=== PATIENT | female | born 1940 | race African-American/Black ===

== ENCOUNTER → 2017-12-27 | Outpatient (CLI) | payer OTHER ==
[2015-03-20 11:43] VITALS: BP 152/73
--- NOTE | 2017-12-27 15:17 | RAD ---
HISTORY: Neck pain. Study: Three views of the cervical spine. Comparison: None. Findings: Slight reversal of the normal cervical lordosis, which may represent positioning versus muscle spasm. Multilevel moderate to severe degenerative changes of the cervical spine. No acute fracture or listh esis. The dens is intact. The prevertebral soft tissues and lung apices appear normal. IMPRESSION: Chronic findings as above. Reported By:
== END ==
LOC: RAD 14:12
PROVIDERS: ATTEND Nurse Practitioner Family
DX: M54.2 Cervicalgia (principal)
CPT/HCPCS: 72040

== ENCOUNTER → 2018-01-05 | Outpatient (CLI) | payer OTHER ==
[2015-03-20 11:43] VITALS: BP 152/73
--- NOTE | 2018-01-06 09:30 | MRI ---
HISTORY: Neck pain and cervical radiculopathy. Noncontrast MRI examination of the cervical spine. Technique: Sagittal T1, sagittal T2, axial T2 weighted images were obtained. Findings: There is diffuse straightening of the normal cervical lordosis on this examination. There i s a moderate to severe spondylosis and facet DJD seen from C3-C7 with multilevel disc osteophyte comp lexes and diffuse cervical disc desiccation. There is no evidence for an acute fracture or subluxatio n. No aggressive bone marrow lesion is seen. There is no evidence for cerebral tonsillar ectopia. The posterior elements appear diffusely intact. There is no evidence for cord expansion, cord edema, or abnormal cord signal. No intrathecal mass lesions or intrathecal hemorrhage is seen. There is no cerv ical soft tissue mass lesions are appreciated. C2 -- C3: No significant disc pathology or foraminal/spinal canal stenosis. C3 -- C4: Facet joint DJD which creates moderate bilateral foraminal narrowing at this level. C4 -- C5: Broad-based, posterior, disc osteophyte complex which combines with facet DJD to create mil d to moderate spinal canal stenosis and moderate to severe foraminal narrowing. C5 -- C6: Broad-based, posterior, disc osteophyte complex which combines with facet DJD to create mod erate spinal canal stenosis and moderate to severe bilateral foraminal narrowing. C6 -- C7: Broad-based, posterior, disc osteophyte complex which combines with facet DJD to create mod erate spinal canal stenosis and moderate to severe bilateral foraminal narrowing. C7 -- T1: No significant disc pathology or foraminal/spinal canal stenosis. IMPRESSION: Straightening/reversal of the normal cervical lordosis observed. Advanced cervical spondylotic change with C3-C7 central disc osteophyte complexes and facet DJD which creates moderate severe foraminal and spinal canal stenosis at these levels, as detailed above. No e vidence for cervical cord myelomalacia, however. Reported By:
== END ==
LOC: RAD 13:50
PROVIDERS: ATTEND Nurse Practitioner Family
DX: R93.7 Abnormal findings on diagnostic imaging of other parts of musculoskeletal system (principal); M50.30 Other cervical disc degeneration, unspecified cervical region; M54.2 Cervicalgia
CPT/HCPCS: 72141

== ENCOUNTER 2020-11-26 16:25 | Inpatient (IN) ==
[2020-11-26 17:21] LABS: ABG BASE EXCESS 9.2 mmol/L (-2.0-2.0)
[2020-11-26 17:22] LABS: ABG ALLEN TEST POS; ABG HCO3 32.6 mmol/L (22-26)
[2020-11-26] MEDS ORDERED: TUSSIONEX PENNKINETIC SUSP PO PRN (17:23)
[2020-11-26] MEDS ORDERED: LEVAQUIN PREMIX IV 500 MG 500 MG/100 ML BAG IV SCH (17:23)
[2020-11-26] MEDS: NS 1/2 1000 ML IV 1,000 ML IV SCH (17:37)
[2020-11-26] MEDS: ROBITUSSIN DM PO SCH ×2 (17:39→22:03)
[2020-11-26] MEDS: VSL#3 PO SCH (17:39)
[2020-11-26] MEDS: PULMICORT NEB TX 0.5 MG NEB SCH ×2 (18:12→21:15)
[2020-11-26] MEDS: DUONEB 0.5 MG/3 MG (3 mL) NEB SCH ×2 (18:12→21:15)
[2020-11-26 18:15] VITALS: BMI 32.5
[2020-11-26 18:29] LABS: BASOPHILS % (AUTO) 0.2 % (0.2-1.0); EOSINOPHILS % (AUTO) 0.1 % (0.9-2.9); HEMATOCRIT 38.8 % (36.0-47.0); HEMOGLOBIN 12.6 g/dL (12.0-16.0); LYMPHOCYTES # (AUTO) 0.8 X10^3/uL (1.3-2.9); LYMPHOCYTES % (AUTO) 10.3 % (21.0-51.0); MEAN CORPUSCULAR HEMOGLOBIN 28.7 pg (27.0-34.0); MEAN CORPUSCULAR HGB CONC 32.6 g/dL (33.0-35.0); MEAN CORPUSCULAR VOLUME 87.9 fL (80.0-100.0); MEAN PLATELET VOLUME 8.3 fL (7.4-11.0); MONOCYTES # (AUTO) 0.6 x10^3/uL (0.3-0.8); MONOCYTES % (AUTO) 7.5 % (0.0-13.0); NEUTROPHILS # (AUTO) 6.5 x10^3/uL (2.2-4.8); NEUTROPHILS % (AUTO) 81.9 % (42.0-75.0); PLATELET COUNT 112 X10^3/uL (150.0-450.0); RED BLOOD COUNT 4.41 X10^6/uL (3.5-5.4); RED CELL DISTRIBUTION WIDTH 13.6 % (11.6-16.5)
[2020-11-26 18:38] LABS: ALBUMIN 2.8 g/dL (3.4-5.0); CALCIUM 9.2 mg/dL (8.5-10.1); CARBON DIOXIDE 30.7 mmol/L (21-32); COR CA(FOR HYPOALB) 10.2 mg/dL (8.5-10.1); CREATININE 1.22 mg/dL (0.55-1.02); TOTAL PROTEIN 7.3 g/dL (6.4-8.2)
[2020-11-26] MEDS ORDERED: REMDESIVIR 200 MG in NS 250 ML IV 250 ML IV SCH (19:33)
[2020-11-26] MEDS ORDERED: REMDESIVIR IV ONE (19:44)
[2020-11-26] MEDS ORDERED: NS 250 ML IV 250 ML IV ONE (19:45)
[2020-11-26] MEDS: MUCOMYST 20% 200 MG/ML NEB SCH (21:15)
[2020-11-26] MEDS: PROTONIX TAB 40 MG PO SCH (22:02)
[2020-11-26] MEDS: TESSALON PERLES PO SCH (22:02)
[2020-11-26] MEDS: LOVENOX INJ 40 MG SYR SC SCH (22:02)
[2020-11-26] MEDS: ZINC SULFATE PO SCH (22:03)
[2020-11-26] MEDS: SOLU-Medrol 40 MG VIAL IVP SCH (22:04)
[2020-11-26] MEDS: ASCORBIC ACID INJ MULTI-DOSE VIAL 1,500 MG in NS 100 ML IV 100 ML IV SCH ×2 (22:05)
[2020-11-26] MEDS ORDERED: SOLU-Medrol 125 MG VIAL ONE (22:06)
[2020-11-26] MEDS ORDERED: ZINC SULFATE ONE (22:07)
[2020-11-26] MEDS ORDERED: TESSALON PERLES PO ONE (22:07)
[2020-11-27] MEDS ORDERED: NS 100 ML IV 100 ML IV ONE ×4 (02:52→14:27)
[2020-11-27] MEDS ORDERED: ASCORBIC ACID INJ MULTI-DOSE VIAL IV ONE ×3 (02:52→14:27)
[2020-11-27] MEDS: ASCORBIC ACID INJ MULTI-DOSE VIAL 1,500 MG in NS 100 ML IV 100 ML IV SCH ×4 (03:36→22:08)
[2020-11-27] MEDS ORDERED: SOLU-Medrol 125 MG VIAL ONE (04:55)
[2020-11-27] MEDS ORDERED: TESSALON PERLES PO ONE ×2 (04:55→14:26)
[2020-11-27] MEDS: SOLU-Medrol 40 MG VIAL IVP SCH ×3 (05:34→22:08)
[2020-11-27] MEDS: TESSALON PERLES PO SCH ×3 (05:34→22:08)
--- NOTE | 2020-11-27 06:10 | RAD ---
HISTORYPNEUMONIASTUDYCHEST, 1 VIEWCOMPARISONNoneFINDINGSThe trachea is midline. The cardiac silhouette is mildly enlarged.. There are patchy infiltrates within the mid and lower lung everett bilaterally. No pneumothorax.. The bony thorax is unremarkable.IMPRESSIONMild cardiomegaly.Bilateral patchy mid and lower lung field infiltrates.Electronically signed by: Jacinto Zamora (Nov 27, 2020 06:08:45)
[2020-11-27 06:14] LABS: ABG BASE EXCESS 6.2 mmol/L (-2.0-2.0); ABG HCO3 29.5 mmol/L (22-26)
[2020-11-27 06:15] LABS: ABG ALLEN TEST POS
[2020-11-27 06:19] LABS: BASOPHILS % (AUTO) 0.2 % (0.2-1.0); HEMATOCRIT 38.7 % (36.0-47.0); HEMOGLOBIN 12.7 g/dL (12.0-16.0); LYMPHOCYTES # (AUTO) 0.7 X10^3/uL (1.3-2.9); LYMPHOCYTES % (AUTO) 7.9 % (21.0-51.0); MEAN CORPUSCULAR HEMOGLOBIN 28.7 pg (27.0-34.0); MEAN CORPUSCULAR HGB CONC 32.8 g/dL (33.0-35.0); MEAN CORPUSCULAR VOLUME 87.6 fL (80.0-100.0); MEAN PLATELET VOLUME 8.7 fL (7.4-11.0); MONOCYTES # (AUTO) 0.7 x10^3/uL (0.3-0.8); MONOCYTES % (AUTO) 7.4 % (0.0-13.0); NEUTROPHILS % (AUTO) 84.5 % (42.0-75.0); PLATELET COUNT 113 X10^3/uL (150.0-450.0); RED BLOOD COUNT 4.42 X10^6/uL (3.5-5.4); RED CELL DISTRIBUTION WIDTH 13.7 % (11.6-16.5); WHITE BLOOD COUNT 9.5 X10^3/uL (3.6-10.0)
--- NOTE | 2020-11-27 06:25 | RAD ---
HISTORYCOVID PNEUMONIASTUDYCHEST, 1 [id number]/29/2020FINDINGSThe trachea is midline. The cardiac silhouette is enlarged.. Patchy infiltrates within the mid and lower lung everett bilaterally minimally increased. No pneumothorax.. The bony thorax is unremarkable.IMPRESSIONMild cardiomegalyBilateral patchy mid and lower lung field infiltrates, slightly increased from previous 11/26/2020Electronically signed by: Jacinto Zamora (Nov 27, 2020 06:23:47)
[2020-11-27 06:35] LABS: ALANINE AMINOTRANSFERASE 34 Units/L (12-78); ALBUMIN 2.5 g/dL (3.4-5.0); ALKALINE PHOSPHATASE 55 Units/L (46-116); ASPARTATE AMINO TRANSFERASE 55 Units/L (15-37); BLOOD UREA NITROGEN 9 mg/dL (7-18); CALCIUM 9.1 mg/dL (8.5-10.1); CARBON DIOXIDE 26.4 mmol/L (21-32); CHLORIDE 102 mmol/L (98-107); COR CA(FOR HYPOALB) 10.3 mg/dL (8.5-10.1); COR NA(FOR HYPERGLY) 138 mmol/L (136-145); CREATININE 1.05 mg/dL (0.55-1.02); SODIUM 138 mmol/L (136-145); eGFR NON BLACK RACES 54 (>60)
[2020-11-27] MEDS ORDERED: PROTONIX TAB 40 MG PO ONE (08:22)
[2020-11-27] MEDS ORDERED: LOVENOX INJ 40 MG SYR SC ONE (08:22)
[2020-11-27] MEDS ORDERED: ZINC SULFATE ONE (08:23)
[2020-11-27] MEDS ORDERED: ROBITUSSIN DM ONE ×4 (08:23→20:22)
[2020-11-27] MEDS: PROTONIX TAB 40 MG PO SCH (08:29)
[2020-11-27] MEDS: LOVENOX INJ 40 MG SYR SC SCH ×2 (08:29→22:09)
[2020-11-27] MEDS: ZINC SULFATE PO SCH ×3 (08:30→23:00)
[2020-11-27] MEDS: ROBITUSSIN DM PO SCH ×4 (08:30→22:09)
[2020-11-27] MEDS: VSL#3 PO SCH (08:57)
[2020-11-27] MEDS ORDERED: DUONEB 0.5 MG/3 MG (3 mL) NEB ONE ×2 (09:37→17:11)
--- NOTE | 2020-11-27 09:40 | CT ---
HISTORYCOVID, shortness of breath, chest painSTUDYCTA chest with contrast for pulmonary embolusTechnique: Axial post-contrast images with coronal, sagittal, and 3 dimensional maximum intensity projection images obtained and evaluated. Dose reduction procedures were used with mA/kv adjusted for body size.COMPARISONNoneFINDINGSThere is no evidence for acute pulmonary thromboembolic disease. Examination of the mediastinum demonstrated no evidence for mediastinal masses, enlarged mediastinal or enlarged hilar adenopathy or significant aortic abnormality. The heart is enlarged. No pleural effusions are identified. No chest wall or axillary abnormality is identified. There is a small hiatal hernia present. Those portions of the upper abdominal organs visualized were within limits. Examination of the lung everett demonstrated diffuse bilateral predominantly peripheral ground-glass infiltrates demonstrating subpleural sparing findings are most consistent with multifocal pneumonia which could be bacterial, viral or atypical viral in origin. COVID lung involvement can have this appearance. No definite nodules, masses, peribronchial thickening or bronchiectasis identified.IMPRESSIONNo evidence for acute pulmonary thromboembolic diseaseFindings consistent with multifocal pneumonia as described above which could be bacterial, viral, or atypical viral in origin. Findings are consistent with but not necessarily diagnostic of COVID-19 lung involvement.Electronically signed by: HOLDEN SPARROW (Nov 27, 2020 09:39:30)
[2020-11-27] MEDS: MUCOMYST 20% 200 MG/ML NEB SCH ×2 (09:52→21:19)
[2020-11-27] MEDS: PULMICORT NEB TX 0.5 MG NEB SCH ×2 (09:52→21:19)
[2020-11-27] MEDS: DUONEB 0.5 MG/3 MG (3 mL) NEB SCH ×5 (09:52→21:19)
[2020-11-27] MEDS: NS 1/2 1000 ML IV 1,000 ML IV SCH ×3 (14:22→22:57)
[2020-11-27] MEDS ORDERED: SOLU-Medrol 40 MG VIAL ONE (14:26)
[2020-11-27] MEDS ORDERED: NS 1/2 1000 ML IV 1,000 ML IV ONE (14:36)
--- NOTE | 2020-11-27 20:06 | DR.H&P ---
H&P - History & Physical for Day of: H&P Date: 11/26/20 - Chief Complaint Chief Complaint: COUGH, SOB, FEVER, WEAKNESS, LOW OXYGEN SATURATIONS, COVID POSITIVE - History of Present Illness History of Present Illness: IS A 79 YEAR OLD PATIENT OF PAT [facility]. CONSULTED US FOR DIRECT ADMISSION OF PATIENT DUE TO HYPOXIA AND PNEUMONIA DUE TO COVID-19. PATIENT WAS REPORTEDLY TESTED FOR COVID-19 ON 11/24/20 AND RECEIVED A POSITIVE RESULT TODAY. SHE PRESENTED WITH COMPLAINTS OF SHORTNESS OF BREATH, NON-PRODUCTIVE COUGH, FEVER OF 103, LOW OXYGEN SATURATIONS, AND GENERALIZED WEAKNESS. HER OXYGEN SATURATIONS IN THE OFFICE WERE REPORTEDLY 88-90% ON ROOM AIR. HER PMH INCLUDES: HTN, HYPERLIPIDEMIA, GERD, HYPOTHYROIDISM, AND CHOLECYSTECTOMY. ON ARRIVAL TO THE ER, VITALS WERE 98.8-92-20-90%NC-185/88. LABS WERE OBTAINED. ABNORMAL LAB VALUES INCLUDE THE FOLLOWING: PLT COUNT 112, POTASSIUM 3.4, CREATININE 1.22, GLUCOSE 112, CORRECTED CALCIUM 10.2, FERRITIN 1466, AST 52, CRP 173.20, ALBUMIN 2.8, D-DIMER 2.04. COVID-19 POSITIVE. AN ABG WAS OBTAINED AND REVEALED: PH 7.530, PC02 39, P02 52, HC03 32.6, 02 SAT 90, BASE EXCESS 9.2, FI02 21.0. BLOOD CULTURES ARE PENDING. A CHEST XRAY WAS OBTAINED AND REVEALED: Mild cardiomegaly. Bilateral patchy mid and lower lung field infiltrates. WE OBTAINED A CHEST CTA. IT REVEALED: No evidence for acute pulmonary thromboembolic disease. Findings consistent with multifocal pneumonia as described above which could be bacterial, viral, or atypical viral in origin. Findings are consistent with but not necessarily diagnostic of COVID-19 lung involvement. SHE WAS PLACED ON A NASAL CANNUAL WITH OXYGEN AT 3 LPM AND HER OXYGEN SATURATIONS INCREASED TO THE MID 90s. IN THE ER, SHE WAS GIVEN LEVAQUIN 500MG IV X 1, REMDESIVIR 200MG IV X 1, ASCORBID ACID 1500MG IV X 1. SHE WAS ADMITTED TO THE HOSPTIAL FOR FURHTER EVALUATION AND TREATMENT OF PNEUONIA DUE TO COVID-19 AND HYPOXIA. SHE WAS STARTED ON 1/2NS AT 75 ML/HR, LEVAQUIN 500MG IV DAILY, DUONEBS QID, PULMICORT NEBS BID, MUCOMYST IN NEBS BID, TUSSIONEX 5ML PO Q12H PRN, ROBITUSSIN DM 10 ML PO QID, TESSALON PERLES 200MG PO TID, LOVENOX 40MG SC BID, ASCORBID ACID 1500MG IV Q6H, PROTONIX 40G PO DAILY, SOLU-MEDROL 80MG IV Q8H, AND ZINC SULFATE 220MG PO BID. WE WILL OBTAIN AN ECHO. OTHERWISE, WE WILL FOLLOW UP WITH AM LABS, CHEST XRAY, ABG, AND CONTINUE TO MONITOR. CRITICAL CARE TIME SPENT ON CLINICAL ASSESSMENT, PHYSICAL EXAMINATION, REVIEWING LABS/IMAGING, AND DECISION MAKING GREATER THAN 75 MINUTES. - Past Medical History Past Medical History: Dyslipidemia, GERD, Hypertension, Hypothyroidism - Past Surgical History Surgical History: Cholecystectomy - Family History Family Medical History: Cancer - Social History Does patient currently use any type of tobacco product: No Have you used tobacco products in the last 12 months: No Type of Tobacco Use: None Does any household member use tobacco: No Alcohol Use: None Drug Use: None - Medications Home Medications: penicillin G Allergy (Verified 11/27/20 03:36) CONTINUE taking the following medications allopurinol 300 mg PO DAILY 11/27/20 [History] frnegmsbel-zedsvvstzegje-atgz [Fioricet] 1 tab PO BID PRN 11/27/20 [History] celecoxib 200 mg PO DAILY 11/27/20 [History] chlordiazepoxide-methscopolamn [Librax (with methscopolamine)] 1 cap PO BID PRN 11/27/20 [History] clonazepam 0.5 mg PO DAILY PRN 11/27/20 [History] cyclobenzaprine 10 mg PO BID PRN 11/27/20 [History] diclofenac sodium 100 mg PO DAILY 11/27/20 [History] duloxetine 60 mg PO DAILY 11/27/20 [History] fenofibrate 160 mg PO HS 11/27/20 [History] ferrous sulfate 325 mg PO BID 11/27/20 [History] fluticasone propionate [Flonase Allergy Relief] 1 spray INTRANASAL DAILY 11/27/20 [History] furosemide [Lasix] 20 mg PO DAILY PRN 11/27/20 [History] hydroxyzine HCl 25 mg PO TID PRN 11/27/20 [History] losartan 100 mg PO DAILY 11/27/20 [History] meclizine 12.5 mg PO PRN PRN 11/27/20 [History] methocarbamol [Robaxin] 500 mg PO BID 11/27/20 [History] cz-dx-kxbg-FA-herbal cmplx#[id number] [Vitamin D3 Complete] 1.25 tab PO DAILY 11/27/20 [History] oxycodone-acetaminophen 1 tab PO BID PRN 11/27/20 [History] pantoprazole 40 mg PO DAILY 11/27/20 [History] potassium chloride [Klor-Con M10] 10 meq PO QID 11/27/20 [History] pregabalin 75 mg PO BID 11/27/20 [History] ropinirole 1 mg PO TID PRN 11/27/20 [History] simvastatin [Zocor] 10 mg PO HS 11/27/20 [History] sulindac 200 mg PO BID 11/27/20 [History] tamsulosin 0.4 mg PO HS 11/27/20 [History] tramadol [Ultram] 50 mg PO TID-QID PRN 11/27/20 [History] zolpidem 10 mg PO HS 11/27/20 [History] - Review of Systems Constitutional: Fever, Chills Eyes: No Symptoms Reported ENT: No Symptoms Reported Respiratory: See HPI, Cough, Shortness of Breath, SOB with Excertion, Wheezing Cardiovascular: No Symptoms Reported Gastrointestinal: No Symptoms Reported Genitourinary: No Symptoms Reported Musculoskeletal: No Symptoms Reported Skin: No Symptoms Reported Neurological: Weakness - Physical Exam Vital Signs: Temperature 98.8 F Pulse Rate [Left Brachial] 92 Pulse Rate 93 Respiratory Rate 22 Blood Pressure [Left Arm] 167/77 Blood Pressure 152/73 O2 Sat by Pulse Oximetry 91 Oriented: Normal Eyes: Normal Ear: Normal Nose: Normal Throat: Normal Respiratory: Wheezes Throughout Cardiovascular: Normal : Normal Auscultation: Bowel Sounds: Normal Palpation: Normal Tenderness: Normal Skin: Normal Musculoskeletal: Normal Psychiatric: Normal Mood Description: Calm Affect: Normal Speech Pattern: Clear - Assessment/Plan (1) Pneumonia due to COVID-19 virus Status: Acute Plan: ADMIT, REMDESIVIR 100MG IV DAILY, 1/2NS AT 75 ML/HR, LEVAQUIN 500MG IV DAILY, DUONEBS QID, PULMICORT NEBS BID, MUCOMYST IN NEBS BID, TUSSIONEX 5ML PO Q12H PRN, ROBITUSSIN DM 10 ML PO QID, TESSALON PERLES 200MG PO TID, LOVENOX 40MG SC BID, ASCORBID ACID 1500MG IV Q6H, PROTONIX 40G PO DAILY, SOLU-MEDROL 80MG IV Q8H, AND ZINC SULFATE 220MG PO BID. (2) Hypoxia Status: Acute - Allergies Allergies/Adverse Reactions: Allergies Allergy/AdvReac Type Severity Reaction Status Date / Time penicillin G Allergy Verified 11/27/20 03:36
[2020-11-27] MEDS ORDERED: NS 250 ML IV 250 ML IV ONE (20:22)
[2020-11-27] MEDS ORDERED: REMDESIVIR IV ONE (20:22)
[2020-11-27] MEDS: REMDESIVIR 100 MG in NS 250 ML IV 250 ML IV SCH (22:09)
[2020-11-27] MEDS: LEVAQUIN PREMIX IV 500 MG 500 MG/100 ML BAG IV SCH (22:57)
[2020-11-27] MEDS ORDERED: IVERMECTIN PO SCH (23:00)
[2020-11-27] MEDS ORDERED: THIAMINE HCL INJ ONE (23:16)
[2020-11-27] MEDS ORDERED: VIBRAMYCIN PO ONE (23:19)
[2020-11-27] MEDS ORDERED: LEVAQUIN PREMIX IV 500 MG 500 MG/100 ML BAG IV ONE (23:19)
[2020-11-27] MEDS: VITAMIN A PO SCH (23:27)
[2020-11-27] MEDS: LIPITOR TAB 40 MG PO SCH (23:34)
[2020-11-27] MEDS: PEPCID TAB 20 MG PO SCH (23:35)
[2020-11-28] MEDS: THIAMINE HCL INJ IVP SCH ×3 (00:01→21:12)
[2020-11-28] MEDS: VITAMIN D (1.25MG) PO SCH ×2 (00:01→09:23)
[2020-11-28] MEDS: VIBRAMYCIN PO SCH ×3 (00:01→21:14)
[2020-11-28] MEDS ORDERED: NS 100 ML IV 100 ML IV ONE (03:04)
[2020-11-28] MEDS: ASCORBIC ACID INJ MULTI-DOSE VIAL 1,500 MG in NS 100 ML IV 100 ML IV SCH (03:35)
[2020-11-28] MEDS ORDERED: TESSALON PERLES PO ONE (04:44)
[2020-11-28] MEDS: TESSALON PERLES PO SCH ×3 (05:01→21:13)
--- NOTE | 2020-11-28 06:47 | RAD ---
HISTORYShortness of breathSTUDYChest AP [id number]/30/2020 plain film and CTA chestFINDINGSThe heart is enlarged. No congestive heart failure is noted. The aorta is calcified. Bilateral interstitial, ground-glass, and alveolar infiltrates are again identified and are unchanged when compared to the prior examination. No pleural effusions are identified. Bony thorax is unremarkable.IMPRESSIONNo change bilateral infiltratesNo change cardiomegaly without congestive heart failureElectronically signed by: HOLDEN SPARROW (Nov 28, 2020 06:45:33)
[2020-11-28 06:53] LABS: BASOPHILS % (AUTO) 0.1 % (0.2-1.0); HEMATOCRIT 38.2 % (36.0-47.0); HEMOGLOBIN 12.6 g/dL (12.0-16.0); LYMPHOCYTES # (AUTO) 0.6 X10^3/uL (1.3-2.9); LYMPHOCYTES % (AUTO) 5.9 % (21.0-51.0); MEAN CORPUSCULAR HEMOGLOBIN 28.9 pg (27.0-34.0); MEAN CORPUSCULAR VOLUME 87.4 fL (80.0-100.0); MEAN PLATELET VOLUME 9.2 fL (7.4-11.0); MONOCYTES # (AUTO) 0.8 x10^3/uL (0.3-0.8); MONOCYTES % (AUTO) 7.5 % (0.0-13.0); NEUTROPHILS # (AUTO) 9.5 x10^3/uL (2.2-4.8); NEUTROPHILS % (AUTO) 86.5 % (42.0-75.0); PLATELET COUNT 145 X10^3/uL (150.0-450.0); RED BLOOD COUNT 4.37 X10^6/uL (3.5-5.4); RED CELL DISTRIBUTION WIDTH 13.6 % (11.6-16.5)
[2020-11-28 07:07] LABS: ALBUMIN 2.4 g/dL (3.4-5.0); CALCIUM 9.5 mg/dL (8.5-10.1); CARBON DIOXIDE 28.9 mmol/L (21-32); COR CA(FOR HYPOALB) 10.8 mg/dL (8.5-10.1); CREATININE 1.46 mg/dL (0.55-1.02); TOTAL PROTEIN 7.2 g/dL (6.4-8.2)
[2020-11-28] MEDS: DUONEB 0.5 MG/3 MG (3 mL) NEB SCH ×5 (09:16→21:00)
[2020-11-28] MEDS: MUCOMYST 20% 200 MG/ML NEB SCH ×2 (09:16→21:00)
[2020-11-28] MEDS: PULMICORT NEB TX 0.5 MG NEB SCH ×3 (09:16→21:00)
[2020-11-28] MEDS: DECADRON TAB PO SCH (09:20)
[2020-11-28] MEDS: LOVENOX INJ 40 MG SYR SC SCH ×2 (09:20→21:09)
[2020-11-28] MEDS: ASCORBIC ACID INJ MULTI-DOSE VIAL 1,500 MG in NS 50 ML IV 50 ML IV SCH ×3 (09:20→21:08)
[2020-11-28] MEDS: PEPCID TAB 20 MG PO SCH ×2 (09:21→21:09)
[2020-11-28] MEDS: PROTONIX TAB 40 MG PO SCH (09:21)
[2020-11-28] MEDS: ROBITUSSIN DM PO SCH ×4 (09:21→21:11)
[2020-11-28] MEDS: VITAMIN A PO SCH (09:22)
[2020-11-28] MEDS: VSL#3 PO SCH (09:23)
[2020-11-28] MEDS: ZINC SULFATE PO SCH ×2 (09:24→21:12)
[2020-11-28] MEDS: NS 1/2 1000 ML IV 1,000 ML IV SCH ×2 (09:24→12:33)
[2020-11-28] MEDS: TYLENOL 325 MG TAB PO PRN ×2 (13:00→21:16)
[2020-11-28] MEDS ORDERED: NS 1/2 1000 ML IV 1,000 ML IV ONE (19:49)
[2020-11-28] MEDS ORDERED: MUCOMYST (RESPIRATORY USE ONLY) ONE (20:01)
[2020-11-28] MEDS: LEVAQUIN PREMIX IV 500 MG 500 MG/100 ML BAG IV SCH (20:08)
[2020-11-28] MEDS: REMDESIVIR 100 MG in NS 250 ML IV 250 ML IV SCH (21:11)
[2020-11-28] MEDS: RESTORIL CAP 30 MG PO PRN (21:14)
[2020-11-29] MEDS: ASCORBIC ACID INJ MULTI-DOSE VIAL 1,500 MG in NS 50 ML IV 50 ML IV SCH ×4 (02:53→21:10)
[2020-11-29] MEDS: NS 1/2 1000 ML IV 1,000 ML IV SCH ×2 (02:53→15:00)
[2020-11-29] MEDS: TESSALON PERLES PO SCH ×3 (05:06→21:15)
[2020-11-29 06:56] LABS: BASOPHILS % (AUTO) 0.1 % (0.2-1.0); HEMATOCRIT 37.3 % (36.0-47.0); HEMOGLOBIN 12.3 g/dL (12.0-16.0); LYMPHOCYTES # (AUTO) 0.6 X10^3/uL (1.3-2.9); LYMPHOCYTES % (AUTO) 3.1 % (21.0-51.0); MEAN CORPUSCULAR HEMOGLOBIN 28.6 pg (27.0-34.0); MEAN CORPUSCULAR HGB CONC 32.9 g/dL (33.0-35.0); MEAN PLATELET VOLUME 8.2 fL (7.4-11.0); MONOCYTES # (AUTO) 1.4 x10^3/uL (0.3-0.8); MONOCYTES % (AUTO) 7.4 % (0.0-13.0); NEUTROPHILS # (AUTO) 16.5 x10^3/uL (2.2-4.8); NEUTROPHILS % (AUTO) 89.4 % (42.0-75.0); PLATELET COUNT 193 X10^3/uL (150.0-450.0); RED BLOOD COUNT 4.28 X10^6/uL (3.5-5.4); RED CELL DISTRIBUTION WIDTH 13.5 % (11.6-16.5); WHITE BLOOD COUNT 18.5 X10^3/uL (3.6-10.0)
[2020-11-29 06:57] LABS: ALBUMIN 2.4 g/dL (3.4-5.0); CALCIUM 9.1 mg/dL (8.5-10.1); CARBON DIOXIDE 28.7 mmol/L (21-32); COR CA(FOR HYPOALB) 10.4 mg/dL (8.5-10.1); CREATININE 1.37 mg/dL (0.55-1.02); TOTAL PROTEIN 6.9 g/dL (6.4-8.2)
--- NOTE | 2020-11-29 08:04 | RAD ---
HISTORYSOBSTUDYCHEST, 1 [id number]/31/2020.TECHNIQUEAP view of the chestFINDINGSCardiac silhouette is stably enlarged. Mediastinal contours are stable. Stable bilateral multifocal airspace opacities. No definite pleural effusion or pneumothorax.IMPRESSIONNo significant change.Electronically signed by: Zen Everett (Nov 29, 2020 08:03:03)
[2020-11-29] MEDS: DECADRON TAB PO SCH (09:17)
[2020-11-29] MEDS: LIPITOR TAB 40 MG PO SCH (09:17)
[2020-11-29] MEDS: LOVENOX INJ 40 MG SYR SC SCH ×2 (09:17→21:13)
[2020-11-29] MEDS: PEPCID TAB 20 MG PO SCH ×2 (09:18→21:13)
[2020-11-29] MEDS: PROTONIX TAB 40 MG PO SCH (09:18)
[2020-11-29] MEDS: THIAMINE HCL INJ IVP SCH ×2 (09:19→21:14)
[2020-11-29] MEDS: ROBITUSSIN DM PO SCH ×4 (09:19→21:14)
[2020-11-29] MEDS: VIBRAMYCIN PO SCH ×2 (09:20→21:14)
[2020-11-29] MEDS: VSL#3 PO SCH (09:20)
[2020-11-29] MEDS: ZINC SULFATE PO SCH ×2 (09:21→21:15)
[2020-11-29] MEDS: VITAMIN D3 125 mcg (5,000 UNITS) PO SCH (09:21)
[2020-11-29] MEDS: VITAMIN A PO SCH (09:25)
[2020-11-29] MEDS: PULMICORT NEB TX 0.5 MG NEB SCH ×2 (10:30→20:35)
[2020-11-29] MEDS: MUCOMYST 20% 200 MG/ML NEB SCH (10:30)
[2020-11-29] MEDS: DUONEB 0.5 MG/3 MG (3 mL) NEB SCH ×4 (10:30→20:35)
[2020-11-29] MEDS: TOPROL XL PO SCH (12:45)
[2020-11-29] MEDS: COZAAR PO SCH (12:45)
[2020-11-29] MEDS: XANAX PO PRN (14:40)
[2020-11-29] MEDS ORDERED: POTASSIUM CHL 40 MEQ/NS 0.45% 500 ML IV PRN (19:48)
[2020-11-29] MEDS ORDERED: KLOR-CON PO PRN (19:48)
[2020-11-29] MEDS ORDERED: POTASSIUM CHL 60 MEQ/NS 0.45% 500 ML IV PRN (19:48)
[2020-11-29] MEDS ORDERED: MAGNESIUM SULFATE 1 GRAM/100 mL PREMIX 1 GM/100 ML BAG IV PRN (19:48)
[2020-11-29] MEDS ORDERED: K-RIDER 10 MEQ/NS 100 ML 10 MEQ/100 ML BAG IV PRN (19:48)
[2020-11-29] MEDS ORDERED: POTASSIUM CHLORIDE LIQ 20 MEQ UDC PO PRN (19:48)
[2020-11-29] MEDS ORDERED: K-DUR TAB 20 MEQ PO PRN (19:48)
[2020-11-29] MEDS ORDERED: MICRO K EXTEN CAP 10 MEQ PO PRN (19:48)
[2020-11-29] MEDS: LEVAQUIN PREMIX IV 500 MG 500 MG/100 ML BAG IV SCH (21:09)
[2020-11-29] MEDS: REMDESIVIR 100 MG in NS 250 ML IV 250 ML IV SCH (21:13)
[2020-11-30] MEDS: XANAX PO PRN ×2 (01:30→23:00)
[2020-11-30] MEDS: ASCORBIC ACID INJ MULTI-DOSE VIAL 1,500 MG in NS 50 ML IV 50 ML IV SCH ×4 (02:01→20:17)
[2020-11-30] MEDS: TESSALON PERLES PO SCH ×3 (05:29→22:09)
[2020-11-30] MEDS: NS 1/2 1000 ML IV 1,000 ML IV SCH ×2 (05:29→20:16)
--- NOTE | 2020-11-30 05:38 | RAD ---
HISTORYFever SOB, covidSTUDYAP [id number]/01/2021FINDINGSContinued cardiomegaly and dilated aorta. Slight interval increase i n bilateral pulmonary infiltrates, right greater than left. No extrapulmonary air or pleural fluid id entified.IMPRESSIONStable cardiomegaly with slight interval progression of bilateral pneumonia.Electr onically signed by: FRANCISCA RUSH (Nov 30, 2020 05:36:44)
[2020-11-30 07:09] LABS: BASOPHILS % (AUTO) 0.1 % (0.2-1.0); HEMATOCRIT 34.8 % (36.0-47.0); HEMOGLOBIN 11.3 g/dL (12.0-16.0); LYMPHOCYTES # (AUTO) 0.5 X10^3/uL (1.3-2.9); LYMPHOCYTES % (AUTO) 2.8 % (21.0-51.0); MEAN CORPUSCULAR HEMOGLOBIN 28.2 pg (27.0-34.0); MEAN CORPUSCULAR HGB CONC 32.3 g/dL (33.0-35.0); MEAN CORPUSCULAR VOLUME 87.3 fL (80.0-100.0); MONOCYTES # (AUTO) 1.3 x10^3/uL (0.3-0.8); NEUTROPHILS # (AUTO) 16.9 x10^3/uL (2.2-4.8); NEUTROPHILS % (AUTO) 90.1 % (42.0-75.0); PLATELET COUNT 223 X10^3/uL (150.0-450.0); RED BLOOD COUNT 3.99 X10^6/uL (3.5-5.4); RED CELL DISTRIBUTION WIDTH 13.9 % (11.6-16.5); WHITE BLOOD COUNT 18.7 X10^3/uL (3.6-10.0)
[2020-11-30 07:10] LABS: ALANINE AMINOTRANSFERASE 46 Units/L (12-78); ALBUMIN 2.2 g/dL (3.4-5.0); ALKALINE PHOSPHATASE 100 Units/L (46-116); ASPARTATE AMINO TRANSFERASE 61 Units/L (15-37); BLOOD UREA NITROGEN 27 mg/dL (7-18); CALCIUM 8.8 mg/dL (8.5-10.1); CARBON DIOXIDE 28.1 mmol/L (21-32); CHLORIDE 109 mmol/L (98-107); COR CA(FOR HYPOALB) 10.2 mg/dL (8.5-10.1); CREATININE 1.11 mg/dL (0.55-1.02); SODIUM 144 mmol/L (136-145); TOTAL PROTEIN 6.6 g/dL (6.4-8.2); eGFR NON BLACK RACES 51 (>60)
[2020-11-30 08:05] LABS: BAND NEUTROPHILS % 7 % (0-10); PLATELET MORPHOLOGY COMMENT NORMAL (NORMAL)
[2020-11-30] MEDS: TOPROL XL PO SCH (09:50)
[2020-11-30] MEDS: COZAAR PO SCH (09:50)
[2020-11-30] MEDS: LIPITOR TAB 40 MG PO SCH (09:50)
[2020-11-30] MEDS: PEPCID TAB 20 MG PO SCH ×2 (09:50→20:22)
[2020-11-30] MEDS: ROBITUSSIN DM PO SCH ×4 (09:50→20:22)
[2020-11-30] MEDS: ZINC SULFATE PO SCH ×2 (09:50→20:21)
[2020-11-30] MEDS: PROTONIX TAB 40 MG PO SCH (09:50)
[2020-11-30] MEDS: VITAMIN D3 125 mcg (5,000 UNITS) PO SCH (09:50)
[2020-11-30] MEDS: LOVENOX INJ 40 MG SYR SC SCH ×2 (09:50→20:18)
[2020-11-30] MEDS: VSL#3 PO SCH (09:50)
[2020-11-30] MEDS: DECADRON TAB PO SCH (09:50)
[2020-11-30] MEDS: THIAMINE HCL INJ IVP SCH ×2 (09:50→20:25)
[2020-11-30] MEDS: VIBRAMYCIN PO SCH ×2 (09:50→20:22)
[2020-11-30] MEDS: VITAMIN A PO SCH (09:50)
[2020-11-30] MEDS: DUONEB 0.5 MG/3 MG (3 mL) NEB SCH ×4 (10:33→21:28)
[2020-11-30] MEDS: PULMICORT NEB TX 0.5 MG NEB SCH ×2 (10:33→21:28)
[2020-11-30] MEDS ORDERED: COZAAR PO ONE (11:57)
[2020-11-30] MEDS ORDERED: TOPROL XL PO ONE (11:58)
[2020-11-30 12:02] LABS: ABG BASE EXCESS 3.9 mmol/L (-2.0-2.0); ABG HCO3 28.5 mmol/L (22-26)
[2020-11-30] MEDS ORDERED: IVERMECTIN PO SCH (13:00)
[2020-11-30] MEDS: LEVAQUIN PREMIX IV 500 MG 500 MG/100 ML BAG IV SCH (20:16)
[2020-11-30] MEDS: REMDESIVIR 100 MG in NS 250 ML IV 250 ML IV SCH (20:22)
[2020-11-30] MEDS: RESTORIL CAP 30 MG PO PRN ×2 (20:30)
[2020-12-01] MEDS: ASCORBIC ACID INJ MULTI-DOSE VIAL 1,500 MG in NS 50 ML IV 50 ML IV SCH ×4 (03:06→20:47)
[2020-12-01] MEDS: TESSALON PERLES PO SCH ×3 (05:13→21:25)
[2020-12-01 06:43] LABS: BASOPHILS % (AUTO) 0.1 % (0.2-1.0); HEMATOCRIT 36.2 % (36.0-47.0); HEMOGLOBIN 11.5 g/dL (12.0-16.0); LYMPHOCYTES # (AUTO) 0.5 X10^3/uL (1.3-2.9); LYMPHOCYTES % (AUTO) 2.8 % (21.0-51.0); MEAN CORPUSCULAR HEMOGLOBIN 27.9 pg (27.0-34.0); MEAN CORPUSCULAR HGB CONC 31.8 g/dL (33.0-35.0); MEAN CORPUSCULAR VOLUME 87.9 fL (80.0-100.0); MEAN PLATELET VOLUME 7.8 fL (7.4-11.0); MONOCYTES # (AUTO) 1.1 x10^3/uL (0.3-0.8); MONOCYTES % (AUTO) 6.5 % (0.0-13.0); NEUTROPHILS % (AUTO) 90.6 % (42.0-75.0); PLATELET COUNT 261 X10^3/uL (150.0-450.0); RED BLOOD COUNT 4.12 X10^6/uL (3.5-5.4); RED CELL DISTRIBUTION WIDTH 14.1 % (11.6-16.5); WHITE BLOOD COUNT 17.7 X10^3/uL (3.6-10.0)
[2020-12-01 07:05] LABS: ALANINE AMINOTRANSFERASE 68 Units/L (12-78); ALBUMIN 2.3 g/dL (3.4-5.0); ALKALINE PHOSPHATASE 142 Units/L (46-116); ASPARTATE AMINO TRANSFERASE 84 Units/L (15-37); BLOOD UREA NITROGEN 25 mg/dL (7-18); CALCIUM 9.3 mg/dL (8.5-10.1); CARBON DIOXIDE 28.2 mmol/L (21-32); CHLORIDE 107 mmol/L (98-107); COR CA(FOR HYPOALB) 10.7 mg/dL (8.5-10.1); COR NA(FOR HYPERGLY) 145 mmol/L (136-145); CREATININE 0.98 mg/dL (0.55-1.02); SODIUM 145 mmol/L (136-145); TOTAL PROTEIN 6.9 g/dL (6.4-8.2); eGFR NON BLACK RACES 58 (>60)
[2020-12-01] MEDS ORDERED: NS 1/2 1000 ML IV 1,000 ML IV ONE (07:34)
[2020-12-01 07:35] LABS: BAND NEUTROPHILS % 7 % (0-10); PLATELET MORPHOLOGY COMMENT NORMAL (NORMAL)
[2020-12-01] MEDS: NS 1/2 1000 ML IV 1,000 ML IV SCH ×2 (07:41→08:00)
[2020-12-01] MEDS ORDERED: NS 100 ML IV 0 ML IV ONE (08:13)
[2020-12-01] MEDS ORDERED: NS 50 ML IV 50 ML IV ONE ×2 (08:24→16:35)
[2020-12-01] MEDS: DUONEB 0.5 MG/3 MG (3 mL) NEB SCH ×4 (09:10→20:50)
[2020-12-01] MEDS: PULMICORT NEB TX 0.5 MG NEB SCH ×2 (09:10→20:50)
[2020-12-01] MEDS: COZAAR PO SCH (09:59)
[2020-12-01] MEDS: VITAMIN D3 125 mcg (5,000 UNITS) PO SCH (10:00)
[2020-12-01] MEDS: VITAMIN A PO SCH (10:00)
[2020-12-01] MEDS: PEPCID TAB 20 MG PO SCH ×2 (10:00→20:47)
[2020-12-01] MEDS: TOPROL XL PO SCH (10:00)
[2020-12-01] MEDS: LIPITOR TAB 40 MG PO SCH (10:00)
[2020-12-01] MEDS: DECADRON TAB PO SCH (10:00)
[2020-12-01] MEDS: ZINC SULFATE PO SCH ×2 (10:00→20:50)
[2020-12-01] MEDS: VSL#3 PO SCH (10:00)
[2020-12-01] MEDS: PROTONIX TAB 40 MG PO SCH (10:00)
[2020-12-01] MEDS: ROBITUSSIN DM PO SCH ×4 (10:00→20:49)
[2020-12-01] MEDS: LOVENOX INJ 40 MG SYR SC SCH ×2 (10:02→20:49)
[2020-12-01] MEDS: VIBRAMYCIN PO SCH ×2 (10:08→20:50)
[2020-12-01] MEDS: THIAMINE HCL INJ IVP SCH ×2 (11:24→20:50)
[2020-12-01] MEDS: XANAX PO PRN ×2 (13:35→22:00)
[2020-12-01] MEDS ORDERED: RESTORIL CAP 15 MG PO PRN (15:51)
[2020-12-01] MEDS: LEVAQUIN PREMIX IV 500 MG 500 MG/100 ML BAG IV SCH (20:47)
[2020-12-02] MEDS: NS 1/2 1000 ML IV 1,000 ML IV SCH (02:39)
[2020-12-02] MEDS: TESSALON PERLES PO SCH (05:00)
[2020-12-02] MEDS: ASCORBIC ACID INJ MULTI-DOSE VIAL 1,500 MG in NS 50 ML IV 50 ML IV SCH ×2 (05:05→12:28)
[2020-12-02 05:28] LABS: ABG ALLEN TEST POS; ABG HCO3 30.2 mmol/L (22-26)
[2020-12-02 07:24] LABS: BASOPHILS % (AUTO) 0.1 % (0.2-1.0); HEMATOCRIT 33.4 % (36.0-47.0); HEMOGLOBIN 11.1 g/dL (12.0-16.0); LYMPHOCYTES # (AUTO) 0.4 X10^3/uL (1.3-2.9); LYMPHOCYTES % (AUTO) 2.9 % (21.0-51.0); MEAN CORPUSCULAR HEMOGLOBIN 28.9 pg (27.0-34.0); MEAN CORPUSCULAR HGB CONC 33.1 g/dL (33.0-35.0); MEAN CORPUSCULAR VOLUME 87.2 fL (80.0-100.0); MEAN PLATELET VOLUME 7.6 fL (7.4-11.0); MONOCYTES # (AUTO) 1.1 x10^3/uL (0.3-0.8); MONOCYTES % (AUTO) 7.1 % (0.0-13.0); NEUTROPHILS # (AUTO) 13.9 x10^3/uL (2.2-4.8); NEUTROPHILS % (AUTO) 89.9 % (42.0-75.0); PLATELET COUNT 288 X10^3/uL (150.0-450.0); RED BLOOD COUNT 3.83 X10^6/uL (3.5-5.4); RED CELL DISTRIBUTION WIDTH 14.2 % (11.6-16.5); WHITE BLOOD COUNT 15.5 X10^3/uL (3.6-10.0)
[2020-12-02 07:32] LABS: ALANINE AMINOTRANSFERASE 68 Units/L (12-78); ALBUMIN 2.2 g/dL (3.4-5.0); ALKALINE PHOSPHATASE 173 Units/L (46-116); ASPARTATE AMINO TRANSFERASE 68 Units/L (15-37); BLOOD UREA NITROGEN 24 mg/dL (7-18); CARBON DIOXIDE 27.3 mmol/L (21-32); CHLORIDE 109 mmol/L (98-107); COR CA(FOR HYPOALB) 10.4 mg/dL (8.5-10.1); CREATININE 0.99 mg/dL (0.55-1.02); SODIUM 146 mmol/L (136-145); TOTAL PROTEIN 6.6 g/dL (6.4-8.2); eGFR NON BLACK RACES 58 (>60)
--- NOTE | 2020-12-02 07:51 | RAD ---
HISTORYSOB, COVID +STUDYCHEST, 1 [id number]/02/2021FINDINGSThere is less opacity in the lungs than previously. This represents improved pneumonia.No pleural effusion or pneumothorax.The heart size is magnified. Vascular calcifications are present compatible with atherosclerosis. Widened mediastinum probably due to supine position and portable technique.Bones are unremarkable.IMPRESSION1. Improved pneumoniaElectronically signed by: Raheem Song (Dec 02, 2020 07:49:31)
[2020-12-02] MEDS: XANAX PO PRN (07:59)
--- NOTE | 2020-12-02 08:03 | RAD ---
HISTORYCOVID+[id number]/03/2021FINDINGSFocal bilateral areas of airspace opacity are present compatible with bronchopneumonia. Findings have progressed.No pleural effusion or pneumothor ax.The heart size is magnified.Widened mediastinum is unchanged, probably due to the portable techniq ue and supine position.Bones are unremarkable.IMPRESSION1. Progressed bronchopneumoniaElectronically signed by: Raheem Song (Dec 02, 2020 08:01:51)
[2020-12-02] MEDS: PEPCID TAB 20 MG PO SCH (08:23)
[2020-12-02] MEDS: PROTONIX TAB 40 MG PO SCH (08:24)
[2020-12-02] MEDS: DUONEB 0.5 MG/3 MG (3 mL) NEB SCH (09:05)
[2020-12-02] MEDS: PULMICORT NEB TX 0.5 MG NEB SCH (09:05)
[2020-12-02 09:27] VITALS: BP 146/97
[2020-12-02] MEDS: VITAMIN A PO SCH (10:00)
[2020-12-02] MEDS: VITAMIN D3 125 mcg (5,000 UNITS) PO SCH (10:00)
[2020-12-02] MEDS: VIBRAMYCIN PO SCH (10:00)
[2020-12-02] MEDS: COZAAR PO SCH (10:00)
[2020-12-02] MEDS: VSL#3 PO SCH (10:00)
[2020-12-02] MEDS: ZINC SULFATE PO SCH (10:00)
[2020-12-02] MEDS: LIPITOR TAB 40 MG PO SCH (10:00)
[2020-12-02] MEDS: TOPROL XL PO SCH (10:00)
[2020-12-02] MEDS ORDERED: MUCOMYST 20% 200 MG/ML NEB SCH (10:45)
[2020-12-02] MEDS ORDERED: SOLU-Medrol 40 MG VIAL IVP SCH (11:00)
[2020-12-02] MEDS: ADRENALINE CHL INJ (ABBOJECT) IVP SCH ×6 (11:41→11:58)
[2020-12-02] MEDS: LOVENOX INJ 40 MG SYR SC SCH (12:31)
[2020-12-02] MEDS: THIAMINE HCL INJ IVP SCH (12:33)
[2020-12-02] MEDS: ROBITUSSIN DM PO SCH (12:33)
== END 2020-12-02 12:05 | disposition expired | DRG 208 ==
LOC: OBS → OBSVTOIN 16:52 → MED/SURG 11-28 12:41
PROVIDERS: ADMIT Internal Medicine; ATTEND Internal Medicine